=== PATIENT | female | born 1940 | race Caucasian/White ===

== ENCOUNTER 2018-08-20 09:16 | Inpatient (IN) | payer MEDICARE, OTHER ==
[~2018-08-20] VITALS: Ht 167.6 cm; Wt 43.1 kg
[2018-08-20] MEDS ORDERED: ACETAMINOPHEN 325 MG TABLET PO PRN (10:00)
[2018-08-20] MEDS ORDERED: MAGNESIUM HYDROXIDE 30 ML UDC PO PRN (10:00)
[2018-08-20] MEDS ORDERED: LORAZEPAM 0.5 MG TABLET PO PRN (10:00)
[2018-08-20] MEDS ORDERED: TEMAZEPAM 7.5 MG CAPSULE PO PRN (10:00)
[2018-08-20] MEDS ORDERED: MAG HYDROX/AL HYDROX/SIMETH 30 ML UDC PO PRN (10:00)
[2018-08-20] MEDS ORDERED: DOCU-141 PO (10:29)
[2018-08-20] MEDS ORDERED: WARF5TAB77 PO (10:29)
[2018-08-20] MEDS ORDERED: TRIF1TAB PO (10:29)
[2018-08-20] MEDS ORDERED: LEVO100T9 PO (10:29)
[2018-08-20] MEDS ORDERED: LOSA25TA27 PO (10:29)
[2018-08-20] MEDS ORDERED: MAGN296S44 PO (10:40)
[2018-08-20] MEDS: BENZTROPINE MESYLATE (1 MG) 1 MG TABLET PO SCH ×2 (11:40→16:53)
[2018-08-20] MEDS: HALOPERIDOL 5 MG TABLET PO SCH ×2 (11:40→16:53)
--- NOTE | 2018-08-20 13:08 | NUR ---
Gallo in the unit and examined pt. and order Coumadin 5 mg po today.
[2018-08-20] MEDS ORDERED: WARF2.5T47 PO (13:16)
--- NOTE | 2018-08-20 13:41 | NUR ---
GPS/RN-NOTES GPS/RN-NOTES ADMITTED 77 YEARS OLD FEMALE PATIENT FROM [facility]. PATIENT ON 5150 HOLD FOR DTS AND GD ADULT. PATIENT IS UNDER DR. BARRERA (PSYCHIATRIST) AND GABI WEATHERS (PRODUCTION CONTROL CLERK) BOTH MD MADE AWARE OF THE ADMISSION. UPON FACE TO FACE ASSESSMENT, PATIENT IS ALERT ORIENTED X3 AMBULATORY WITH STEADY GAIT. PATIENT DID NOT VERBALIZE SI/HI, DENIES VISUAL/AUDITORY HALLUCINATIONS AT THIS TIME. PATIENT'S RIGHT WAS REVIEWED WITH THE PATIENT AND UNIT POLICIES WITH UNDERSTANDING.PATIENT'S RIGHT BOOKLET WAS WAS GIVEN TO HER.CONTRABAND AND FULL BODY ASSESSMENT WAS DONE. MRSA SWAB DONE AND SPECIMEN SENT TO LAB. WOUND CONSULTS ALSO ORDERED FOR LEFT HAND OPEN WOUND.CALLED PATIENT'S SON KEVIN RODRIGUEZ AT ([phone]) AND LEFT MESSAGE VIA VOICE MAIL. STILL AWAITING FOR CALL BACK.
[2018-08-20] MEDS ORDERED: MAGNESIUM CITRATE 296 ML BOTTLE PO PRN (14:30)
[2018-08-20 16:11] VITALS: BP 99/55
[2018-08-20] MEDS: WARFARIN SODIUM 5 MG TABLET PO SCH (16:54)
[2018-08-20] MEDS ORDERED: WARFARIN SODIUM 2.5 MG TABLET PO SCH (17:00)
--- NOTE | 2018-08-20 19:32 | NUR ---
GPS/INSTRUCTOR NURSE NOTES: TRIED TO NOTIFY PT. FAMILY BUT WENT STRAIGHT TO VOICEMAIL. LEFT MESSAGE TO RETURN OUR CALL.
[2018-08-20 20:00] VITALS: BP 103/67
[2018-08-21] MEDS: LEVOTHYROXINE SODIUM 100 MCG TABLET PO SCH (07:30)
[2018-08-21 07:51] LABS: THYROID STIMULATING HORMONE 1.096 uIU/mL (0.358-3.74)
[2018-08-21 07:52] LABS: ALANINE AMINOTRANSFERASE 20 U/L (12-78); ALBUMIN 2.8 g/dL (3.4-5.0); ALKALINE PHOSPHATASE 58 U/L (46-116); ASPARTATE AMINOTRANSFERASE 14 U/L (15-37); BILIRUBIN,TOTAL 0.4 mg/dL (0.2-1.0); CALCIUM, SERUM 8.7 mg/dL (8.5-10.1); CARBON DIOXIDE 27 mmol/L (21-32); CHLORIDE 107 mmol/L (98-107); GLUCOSE 88 mg/dL (74-106); MAGNESIUM 2.1 mg/dL (1.8-2.4); PHOSPHORUS 3.5 mg/dL (2.5-4.9); POTASSIUM 4.1 mmol/L (3.5-5.1); SODIUM SERUM 141 mmol/L (136-145); TOTAL PROTEIN, SERUM 5.4 g/dL (6.4-8.2); UREA NITROGEN, BLOOD 33 mg/dL (7-18)
[2018-08-21 08:00] VITALS: BP 126/74
[2018-08-21] MEDS: LOSARTAN POTASSIUM 25 MG TABLET PO SCH (09:00)
[2018-08-21] MEDS: DOCUSATE SODIUM 100 MG CAPSULE PO SCH (09:00)
[2018-08-21] MEDS: HALOPERIDOL 5 MG TABLET PO SCH ×2 (09:00→16:40)
[2018-08-21] MEDS: BENZTROPINE MESYLATE (1 MG) 1 MG TABLET PO SCH ×2 (09:17→16:39)
--- NOTE | 2018-08-21 09:25 | NUR ---
WOUND CARE CONSULT: PT PRESENTS WITH LEFT ARM SKIN TEAR, PRESENT ON ADMISSION. DRY SCABS NOTED TO RT ARM, PRESENT ON ADMISSION. PT IS AMBULATORY AND CONTINENT. CURRENT REBECCA SCORE IS 20. IN AGREEMENT WITH PLAN OF CARE. Addendum: 08/21/18 at 0926 by KASSIE GO WNDNU Amended: Links added.
--- NOTE | 2018-08-21 10:00 | NUR ---
GPS/RN PT REFUSED ALL AM MEDS OFFERED X3
--- NOTE | 2018-08-21 11:44 | NUR ---
JASIEL CAME AND WAS NOTIFIED ABOUT THE PT/INR AND SAID TO CONTINUE COUMADIN 5 MG TODAY.
--- NOTE | 2018-08-21 12:31 | NUR ---
SW contacted pts son Addy [phone] for collateral information and discharge planning. Per son he mentioned that he is a psychologist and has conservatorship over pt. SW asked if he had LPS or probate conservatorship and son was unable to provide SW with information. SW requested he fax conservatorship paperwork to determine what type of conservatorship pt has to. Son also stated that he is looking for an assisted living to place pt at and stated once pt is stable for discharge he would be picking pt up. Son also requested SW not speak to pts other son Spencer [phone] as he is mentally ill and has multiple legal issues. SW discussed pts treatment plan with son and son agreed with treatment.
[2018-08-21 13:02] LABS: CALCIUM, SERUM 9.2 mg/dL (8.5-10.1); CARBON DIOXIDE 28 mmol/L (21-32); CHLORIDE 105 mmol/L (98-107); CREATININE 1.1 mg/dL (0.6-1.3); GLUCOSE 94 mg/dL (74-106); POTASSIUM 4.2 mmol/L (3.5-5.1); SODIUM SERUM 141 mmol/L (136-145); UREA NITROGEN, BLOOD 33 mg/dL (7-18)
--- NOTE | 2018-08-21 13:06 | NUR ---
INITIAL DISCHARGE PLAN: Per son Addy [phone] pt at an assisted living facility in [place]. Son will collaborate with SW to appropriately discharge pt. SW will help form a safe and proper discharge in collaboration with psychiatrist.
--- NOTE | 2018-08-21 14:14 | NUR ---
Group Note: Pt was encouraged to participate in group therapy on 08/21/18 at 1:30PM but the pt refused to talk and remained in her room.
[2018-08-21 16:10] VITALS: BP 103/66
[2018-08-21] MEDS: WARFARIN SODIUM 5 MG TABLET PO SCH (16:56)
[2018-08-21] MEDS ORDERED: WARFARIN SODIUM 5 MG TABLET PO SCH (17:00)
[2018-08-21] MEDS: ENSURE ENLIVE 237 ML LIQUID (VANILLA) PO SCH (17:00)
--- NOTE | 2018-08-21 17:00 | NUR ---
GPS/RN POT AGREED TO TAKE COUMADIN 5MG PO BUT REFUSED THE REST OF MEDS TODAY. PT IS VERY SUSPICIOUS REGARDING MEDS AND EASILY AGITATED.
[2018-08-21 20:00] VITALS: BP 105/65
[2018-08-22] MEDS: LEVOTHYROXINE SODIUM 100 MCG TABLET PO SCH (07:30)
[2018-08-22 08:00] VITALS: BP 106/57
[2018-08-22] MEDS: DOCUSATE SODIUM 100 MG CAPSULE PO SCH (08:34)
[2018-08-22] MEDS: BENZTROPINE MESYLATE (1 MG) 1 MG TABLET PO SCH ×2 (08:34→17:00)
[2018-08-22] MEDS: ENSURE ENLIVE 237 ML LIQUID (VANILLA) PO SCH ×3 (08:34→17:00)
[2018-08-22] MEDS: LOSARTAN POTASSIUM 25 MG TABLET PO SCH (08:34)
[2018-08-22] MEDS: HALOPERIDOL 5 MG TABLET PO SCH ×2 (08:35→17:00)
[2018-08-22 16:00] VITALS: BP 102/58
[2018-08-22] MEDS: WARFARIN SODIUM 5 MG TABLET PO SCH (17:00)
[2018-08-22 19:38] VITALS: BP 109/68
[2018-08-23] MEDS: LEVOTHYROXINE SODIUM 100 MCG TABLET PO SCH (07:30)
[2018-08-23 08:00] VITALS: BP 118/76
[2018-08-23] MEDS: DOCUSATE SODIUM 100 MG CAPSULE PO SCH (09:00)
[2018-08-23] MEDS: BENZTROPINE MESYLATE (1 MG) 1 MG TABLET PO SCH ×2 (09:00→16:59)
[2018-08-23] MEDS: HALOPERIDOL 5 MG TABLET PO SCH ×2 (09:00→16:59)
[2018-08-23] MEDS: LOSARTAN POTASSIUM 25 MG TABLET PO SCH (09:00)
[2018-08-23] MEDS: ENSURE ENLIVE 237 ML LIQUID (VANILLA) PO SCH ×3 (09:10→17:23)
[2018-08-23 13:00] VITALS: BP 96/59
[2018-08-23] MEDS: WARFARIN SODIUM 5 MG TABLET PO SCH (17:25)
[2018-08-23 20:00] VITALS: BP 126/75
[2018-08-24 08:00] VITALS: BP 100/66
[2018-08-24] MEDS: LOSARTAN POTASSIUM 25 MG TABLET PO SCH (09:00)
[2018-08-24] MEDS: LEVOTHYROXINE SODIUM 100 MCG TABLET PO SCH (10:11)
[2018-08-24] MEDS: HALOPERIDOL 5 MG TABLET PO SCH ×2 (10:12→18:41)
[2018-08-24] MEDS: DOCUSATE SODIUM 100 MG CAPSULE PO SCH (10:12)
[2018-08-24] MEDS: BENZTROPINE MESYLATE (1 MG) 1 MG TABLET PO SCH ×2 (10:13→18:41)
[2018-08-24] MEDS: ENSURE ENLIVE 237 ML LIQUID (VANILLA) PO SCH ×3 (10:15→18:42)
--- NOTE | 2018-08-24 15:40 | NUR ---
GROUP NOTE: Pt was present but did not participate in group. The group Topic was "Depression" Pt was sitting in the back of the room and stated, "No, I don't want to share Im just taking it all in."
[2018-08-24 16:00] VITALS: BP 100/69
[2018-08-24] MEDS: WARFARIN SODIUM 5 MG TABLET PO SCH (18:44)
[2018-08-24 19:46] VITALS: BP 124/63
[2018-08-25 08:00] VITALS: BP 104/74
[2018-08-25] MEDS: HALOPERIDOL 5 MG TABLET PO SCH ×2 (08:16→17:05)
[2018-08-25] MEDS: DOCUSATE SODIUM 100 MG CAPSULE PO SCH (08:16)
[2018-08-25] MEDS: LEVOTHYROXINE SODIUM 100 MCG TABLET PO SCH (08:17)
[2018-08-25] MEDS: LOSARTAN POTASSIUM 25 MG TABLET PO SCH (08:17)
[2018-08-25] MEDS: BENZTROPINE MESYLATE (1 MG) 1 MG TABLET PO SCH ×2 (08:17→17:05)
[2018-08-25] MEDS: ENSURE ENLIVE 237 ML LIQUID (VANILLA) PO SCH ×3 (08:18→17:03)
--- NOTE | 2018-08-25 12:24 | NUR ---
SW contacted pts son Santo [phone] to discuss pts discharge plan to a SNF, SW informed son that psychiatrist is recommending SNF placement as pt is not consistent with medications and also needs supervision. Son agreed and stated that he was concerned that pt would not do well at an assisted living and is happy that she will be discharged to a SNF. Son also stated that he is currently working on getting conservatorship over pt.
--- NOTE | 2018-08-25 12:24 | NUR ---
SNF REFERRAL: EDSON faxed SNF referral to Marizol academic support coordinator at [facility] Address: [address], [place] [address] for review.
[2018-08-25 16:00] VITALS: BP 92/71
--- NOTE | 2018-08-25 16:43 | NUR ---
Group Note: Pt was encouraged to participate in group therapy on 08/25/18 at 3PM but the pt refused to participate and remained in her room. She stated that she does not enjoy group therapy and does not want to interact with her peers.
[2018-08-25] MEDS: WARFARIN SODIUM 5 MG TABLET PO SCH (17:07)
[2018-08-25 20:21] VITALS: BP 98/63
[2018-08-26 08:00] VITALS: BP 100/58
[2018-08-26] MEDS: DOCUSATE SODIUM 100 MG CAPSULE PO SCH (08:29)
[2018-08-26] MEDS: LEVOTHYROXINE SODIUM 100 MCG TABLET PO SCH (08:29)
[2018-08-26] MEDS: BENZTROPINE MESYLATE (1 MG) 1 MG TABLET PO SCH ×2 (08:29→16:54)
[2018-08-26] MEDS: HALOPERIDOL 5 MG TABLET PO SCH ×2 (08:30→16:54)
[2018-08-26] MEDS: LOSARTAN POTASSIUM 25 MG TABLET PO SCH (08:30)
[2018-08-26] MEDS: ENSURE ENLIVE 237 ML LIQUID (VANILLA) PO SCH ×3 (08:33→16:54)
--- NOTE | 2018-08-26 13:26 | NUR ---
EDSON contacted pts son Santo [phone] to discuss pts discharge plan and informed him that due to pt currently receiving Workers Compensation Medicare will no cover for SNF placement unless the family is willing to pay out pocket. Son stated that pt only received $1000/month and it is not enough to pay for a SNF or an assisted living. Son stated that he will be picking pt up and taking her back home. EDSON informed him that pt will be discharged omn Friday08/31/18 and son agreed. Son will be picking pt up and transporting home.
--- NOTE | 2018-08-26 14:35 | NUR ---
Group Note: Pt was present in group therapy but she refused to participate and stated, "I don't want to share."
--- NOTE | 2018-08-26 15:35 | NUR ---
EDSON faxed SNF referral to Ramona social worker aide at [facility] Address: [address] [place] [address] for review.
[2018-08-26 16:00] VITALS: BP 119/74
--- NOTE | 2018-08-26 17:51 | NUR ---
CATHIE POLICE COMMISSIONER NOTIFIED ABOUT PT/ INR AND SAID HE WILL PUT THE ORDER.
[2018-08-26] MEDS: WARFARIN SODIUM 5 MG TABLET PO SCH (17:54)
[2018-08-26 20:00] VITALS: BP 107/61
[2018-08-27] MEDS: LEVOTHYROXINE SODIUM 100 MCG TABLET PO SCH (07:36)
[2018-08-27 08:00] VITALS: BP 107/58
[2018-08-27] MEDS: DOCUSATE SODIUM 100 MG CAPSULE PO SCH (08:06)
[2018-08-27] MEDS: BENZTROPINE MESYLATE (1 MG) 1 MG TABLET PO SCH ×2 (08:06→17:34)
[2018-08-27] MEDS: ENSURE ENLIVE 237 ML LIQUID (VANILLA) PO SCH ×3 (08:06→17:34)
[2018-08-27] MEDS: HALOPERIDOL 5 MG TABLET PO SCH ×2 (08:06→17:34)
[2018-08-27] MEDS: LOSARTAN POTASSIUM 25 MG TABLET PO SCH (08:07)
--- NOTE | 2018-08-27 15:22 | NUR ---
GROUP NOTE: Group was held on 08/27/18 at 2:00pm and the topic was group setting. S: "My goal is to get out of here and get back to my normal life." O: Pt did not want to share however SW prompted pt to identify a goal. Pt has her arms crossed and was looking down. It appeared as she was guarded and paranoid to her surroundings. A: Pt expressed intense feelings of wanting to be discharged. Pt remains with lack of insight and believes she does not need assistance at home. P: Pt will continue milieu treatment and medication stabilization.
[2018-08-27 16:00] VITALS: BP 100/56
[2018-08-27] MEDS: WARFARIN SODIUM 2.5 MG TABLET PO SCH (17:35)
[2018-08-27 20:00] VITALS: BP 115/57
[2018-08-28 08:00] VITALS: BP 122/72
[2018-08-28] MEDS: LEVOTHYROXINE SODIUM 100 MCG TABLET PO SCH (08:17)
[2018-08-28] MEDS: LOSARTAN POTASSIUM 25 MG TABLET PO SCH (08:17)
[2018-08-28] MEDS: DOCUSATE SODIUM 100 MG CAPSULE PO SCH (08:18)
[2018-08-28] MEDS: ENSURE ENLIVE 237 ML LIQUID (VANILLA) PO SCH ×3 (08:18→16:21)
[2018-08-28] MEDS: BENZTROPINE MESYLATE (1 MG) 1 MG TABLET PO SCH ×2 (08:18→16:20)
[2018-08-28] MEDS: HALOPERIDOL 5 MG TABLET PO SCH ×2 (08:18→16:21)
--- NOTE | 2018-08-28 08:22 | NUR ---
EDSON contacted pts son Santo [phone] and left voicemail requesting transportation bean picker time for Friday08/31/18
--- NOTE | 2018-08-28 11:24 | NUR ---
EDSON contacted pts son Santo [phone] and left voicemail requesting transportation picker tender time for Friday08/31/18
--- NOTE | 2018-08-28 11:34 | NUR ---
SALUD LEWIS NOTIFIED ABOUT THE PT/INR AND SAID TO GIVE SAME DOSE SCHEDULED FOR TODAY.
--- NOTE | 2018-08-28 15:02 | NUR ---
Group note: Pt was encouraged to join group therapy session on 08/28/18 at 2:00pm. Pt. unable to attend group.
[2018-08-28 16:00] VITALS: BP 120/69
[2018-08-28] MEDS: WARFARIN SODIUM 5 MG TABLET PO SCH (16:21)
[2018-08-28 19:52] VITALS: BP 96/56
[2018-08-29] MEDS: BENZTROPINE MESYLATE (1 MG) 1 MG TABLET PO SCH ×2 (07:56→16:55)
[2018-08-29] MEDS: DOCUSATE SODIUM 100 MG CAPSULE PO SCH (07:56)
[2018-08-29] MEDS: LOSARTAN POTASSIUM 25 MG TABLET PO SCH (07:56)
[2018-08-29] MEDS: LEVOTHYROXINE SODIUM 100 MCG TABLET PO SCH (07:56)
[2018-08-29] MEDS: HALOPERIDOL 5 MG TABLET PO SCH (07:56)
[2018-08-29 08:00] VITALS: BP 116/60
[2018-08-29] MEDS: ENSURE ENLIVE 237 ML LIQUID (VANILLA) PO SCH ×3 (15:42→16:50)
[2018-08-29 16:00] VITALS: BP 107/63
[2018-08-29] MEDS: WARFARIN SODIUM 2.5 MG TABLET PO SCH (16:55)
--- NOTE | 2018-08-29 19:30 | NUR ---
GPS RN NOTE, RECEIVED PATIENT AWAKE AND IN BED, NO S/S OR COMPLAINTS OF PAIN AT THIS TIME. PATIENT IS DISPLAYING NO S/S OF APPARENT DISTRESS AT THIS TIME. PATIENT BREATHING IS UNLABORED WITH EQUAL RISE AND FALL OF THE CHEST. PATIENT IS ALERT AND ORIENTED X 3 ON ROOM AIR WITH A SPO2 OF 97%. PATIENT IS MED COMPLAINT, DISORGANIZED, DEPRESSED, COOPERATIVE, AND ANXIOUS AT TIMES. PATIENT DENIES SUICIDE AND HOMICIDAL IDEATIONS AT THIS TIME. PATIENT ASSISTED WITH TURNING AND REPOSITIONING Q2HR AND PRN FOR COMFORT AND CIRCULATION. PATIENT HAS NO NEEDS AT THIS TIME. PATIENT EDUCATED ON THE USE OF THE CALL NATARAJAN. PATIENT BED SIDE RAILS ARE UP X 2 FOR SAFETY, BED IS LOCKED, AND LOW WILL CONTINUE TO MONITOR AND MAINTAIN SAFETY.
[2018-08-29 19:34] VITALS: BP 107/66
[2018-08-30 08:00] VITALS: BP 115/66
[2018-08-30] MEDS: DOCUSATE SODIUM 100 MG CAPSULE PO SCH (08:32)
[2018-08-30] MEDS: BENZTROPINE MESYLATE (1 MG) 1 MG TABLET PO SCH ×2 (08:32→17:23)
[2018-08-30] MEDS: LEVOTHYROXINE SODIUM 100 MCG TABLET PO SCH (08:32)
[2018-08-30] MEDS: LOSARTAN POTASSIUM 25 MG TABLET PO SCH (08:33)
[2018-08-30] MEDS: ENSURE ENLIVE 237 ML LIQUID (VANILLA) PO SCH ×3 (12:36→17:21)
[2018-08-30 16:00] VITALS: BP 128/77
[2018-08-30] MEDS: WARFARIN SODIUM 2.5 MG TABLET PO SCH (17:28)
[2018-08-30 20:59] VITALS: BP 144/72
[2018-08-30] MEDS ORDERED: HALOPERIDOL 5 MG TABLET PO SCH (22:00)
--- NOTE | 2018-08-31 07:19 | NUR ---
Patient discharged to [facility] located at [address] [phone].Patient was picked up by son Joselo at 0710.Patient is alert,oriented x 2-3,ambulatory ,no s/s of acute distress noted, denies suicidal ideations and suicidal thoughts.Patient personal belongings was handed to her son.Explained to patient and son about her prescriptions ,medications dosage and frequency.Discharge instructions explained and patient verbalized understanding.Patient left the unit with son at 0720. Addendum: 08/31/18 at 0731 by KATE DE LA CRUZ RN Patient was medically cleared upon discharge.
--- NOTE | 2018-08-31 08:45 | NUR ---
DISCHARGE NOTE: Pt was discharged at 0700 to [facility] [address], [facility] [id number] . Pt was picked up by son Addy [phone]. Pts mood was euthymic with congruent affect. Pt denied suicidal/homicidal ideation and denied visual/auditory hallucinations. Pt will follow up with [facility] Address: [address], [place] [address] on Friday09/01/18 before 5:00pm and will follow up with grain blender Dr. Сергей Avila Address: [address] [place] [address] [address] [address] . The multidisciplinary exit care form was done, printed, signed, and given to the patient.
== END 2018-08-31 07:28 | DRG 885 ==
LOC: GPS 09:16
PROVIDERS: ADMIT Psychiatry & Neurology Psychosomatic Medicine; ATTEND Nurse Practitioner Acute Care
DX: F20.9 Schizophrenia, unspecified (principal); F01.50 Vascular dementia, unspecified severity, without behavioral disturbance, psychotic disturbance, mood disturbance, and anxiety; E43 Unspecified severe protein-calorie malnutrition; Z68.1 Body mass index [BMI] 19.9 or less, adult; R64 Cachexia; F29 Unspecified psychosis not due to a substance or known physiological condition; I48.0 Paroxysmal atrial fibrillation; I10 Essential (primary) hypertension; E78.5 Hyperlipidemia, unspecified; M62.84 Sarcopenia; Z79.01 Long term (current) use of anticoagulants; Z73.6 Limitation of activities due to disability; Z86.73 Personal history of transient ischemic attack (TIA), and cerebral infarction without residual deficits
CPT/HCPCS: 36415; 80048-TC; 80053-TC; 80061-TC; 83735-TC; 84100-TC; 84443-TC; 85610-TC; 87081-TC; A6402